=== PATIENT | female | born 2005 | race African-American/Black ===

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

== ENCOUNTER 2025-03-21 12:36 | Day surgery (SDC) | payer OTHER ==
[2025-03-21 13:05] VITALS: BMI 34.4
[2025-03-21] MEDS ORDERED: hydrALAZINE 20 MG/ML VIAL SLOW IVP PRN (13:33)
[2025-03-21 13:45] LABS: Glucose, Urine (Dipstick) Normal (Negative); Leukocyte 100 (Negative); Protein, Urine (Dipstick) 30 mg/dl (Neg-Trace); Specific Gravity, Urine 1.015 (1.005-1.030)
[2025-03-21 14:19] LABS: Bacteria/HPF 2+ HPF (None Seen); CAUTI Indications for Culture Pregnancy; RBC/HPF 0-3 HPF (0-3)
[2025-03-21 14:20] LABS: Urine Culture Reflex Yes Yes
== END 2025-03-21 14:35 | disposition home or self-care (01) ==
LOC: CSHLD/OP 12:36
PROVIDERS: ATTEND Family Medicine
DX: O47.03 False labor before 37 completed weeks of gestation, third trimester (principal); O99.213 Obesity complicating pregnancy, third trimester; Z3A.35 35 weeks gestation of pregnancy; Z67.40 Type O blood, Rh positive
CPT/HCPCS: 81001; 87086; 99283

== ENCOUNTER 2025-04-02 21:00 | Day surgery (SDC) | payer OTHER ==
[2025-04-02] MEDS: Acetaminophen 500 MG TAB PO SCH (22:38)
== END 2025-04-03 00:45 | disposition home or self-care (01) ==
LOC: CSHLD/OP 21:00
PROVIDERS: ATTEND Family Medicine
DX: O47.03 False labor before 37 completed weeks of gestation, third trimester (principal); Z3A.36 36 weeks gestation of pregnancy; Z67.40 Type O blood, Rh positive; Z79.899 Other long term (current) drug therapy
CPT/HCPCS: 96360; 99284

== ENCOUNTER 2025-04-10 15:23 | Day surgery (SDC) | payer OTHER ==
[2025-04-10 16:11] VITALS: BMI 35.4
[2025-04-10] MEDS ORDERED: hydrALAZINE 20 MG/ML VIAL SLOW IVP PRN (16:20)
== END 2025-04-10 17:21 | disposition home or self-care (01) ==
LOC: CSHLD/OP 15:23
PROVIDERS: ATTEND Family Medicine
DX: O47.1 False labor at or after 37 completed weeks of gestation (principal); Z67.40 Type O blood, Rh positive; Z3A.38 38 weeks gestation of pregnancy
CPT/HCPCS: 99283

== ENCOUNTER 2025-04-28 07:32 | Inpatient (IN) | payer OTHER ==
[2025-04-28] MEDS ORDERED: hydrALAZINE 20 MG/ML VIAL SLOW IVP PRN ×3 (07:53→22:05)
[2025-04-28] MEDS ORDERED: Diphenoxylate HCl/Atropine Tablet PO PRN (07:57)
[2025-04-28] MEDS ORDERED: Lidocaine 1% (PF) 30 ML VIAL SC PRN (07:57)
[2025-04-28] MEDS ORDERED: Acetaminophen 500 MG TAB PO PRN (07:57)
[2025-04-28] MEDS ORDERED: Ibuprofen 800 MG TAB PO PRN (07:57)
[2025-04-28] MEDS ORDERED: Oxytocin 30 units/NS 500 ML 500 ML IV SCH ×2 (08:00→22:05)
[2025-04-28 08:53] LABS: Hematocrit 34.7 % (34.9-44.5); Hemoglobin 11.2 g/dL (12.0-15.5); Mean Corpuscular Hemoglobin 27.0 pg (27.0-33.0); Mean Corpuscular Volume 83.6 fL (81.6-98.3); Platelet Count 189 10x3/uL (150-450); Red Blood Cell (RBC) Count 4.15 10x6/uL (3.90-5.03); White Blood Cell (WBC) Count 7.51 10x3/uL (3.5-10.5)
[2025-04-28 09:26] LABS: Syphilis Antibody Index 0.07 S/CO (<1.00 Non-Reactive)
[2025-04-28 09:27] LABS: Hep B Surf Ag - L&D Non-Reactive S/CO (NonReactive)
[2025-04-28] MEDS: fentaNYL/Ropivacaine Epidural 100 ML ONE (12:32)
[2025-04-28] MEDS: Ondansetron PF 4 MG/2 ML Vial IVP PRN ×2 (16:12→23:25)
[2025-04-28] MEDS ORDERED: Bicitra 30 ML UDCUP PO PRN (16:58)
[2025-04-28] MEDS ORDERED: Famotidine/PF 20 mg/2ml Vial SLOW IVP PRN (16:58)
[2025-04-28] MEDS ORDERED: Azithromycin 500 MG in Sodium Chloride 0.9% 250 ML 250 ML IVPB SCH (17:00)
[2025-04-28] MEDS ORDERED: HYDROmorphone 0.5 MG/0.5 ML SYRINGE SLOW IVP PRN (18:40)
[2025-04-28] MEDS ORDERED: Ondansetron PF 4 MG/2 ML Vial IVP PRN (18:40)
[2025-04-28] MEDS ORDERED: Communication Order-Pharmacy FS SCH (18:45)
[2025-04-28] MEDS ORDERED: Ketorolac Tromethamine 30 MG (1 mL) VIAL IVP SCH (18:45)
[2025-04-28] MEDS: Methylergonovine 0.2 MG/ML VIAL IM PRN (19:48)
[2025-04-28] MEDS: Oxytocin 30 units/NS 500 ML 500 ML IV SCH (19:59)
[2025-04-28] MEDS: Tranexamic Acid 1,000 MG/10 ML VIAL IVP PRN (20:09)
[2025-04-28 20:40] LABS: Platelet Count 190.0 10x3/uL (150-450)
[2025-04-28] MEDS: Meperidine HCl/PF 25 MG (1 mL) VIAL SLOW IVP PRN (20:56)
[2025-04-28] MEDS: Carboprost 250 MCG/ML AMP IM PRN (20:56)
[2025-04-28] MEDS: Diphenoxylate HCl/Atropine Tablet PO PRN (20:58)
[2025-04-28 20:59] LABS: D-Dimer Test 8.58 mcg/mL (0.19-0.50); Fibrinogen 361.0 mg/dL (220-504); INR-International Normal Ratio 0.9; PTT 29.7 sec (22.0-33.0); Prothrombin Time 10.4 sec (9.5-12.1)
[2025-04-28] MEDS ORDERED: Lanolin Ointment 7 GM TUBE TOP PRN (22:05)
[2025-04-28] MEDS ORDERED: Methylergonovine 0.2 MG/ML VIAL IM PRN (22:05)
[2025-04-28] MEDS: Azithromycin 500 MG VIAL ONE (22:07)
[2025-04-28] MEDS: Dexamethasone 10 MG/ML VIAL ONE (22:08)
[2025-04-28] MEDS: Lidocaine 2% MPF 10 ML AMP (For Epidural Use) ONE (22:08)
[2025-04-28] MEDS: CEFAZOLIN 2 GM VIAL ONE (22:08)
[2025-04-28] MEDS: Carboprost 250 MCG/ML AMP ONE (22:09)
[2025-04-28] MEDS: Methylergonovine 0.2 MG/ML VIAL ONE (22:09)
[2025-04-28] MEDS: Famotidine/PF 20 mg/2ml Vial ONE (22:09)
[2025-04-28] MEDS: PHENYLEPHRINE-NS 100 MCG/ML 10 ML SYRINGE ONE (22:09)
[2025-04-28] MEDS: Ferrous Sulfate 325 MG TAB PO SCH (22:22)
[2025-04-28] MEDS: Ketorolac Tromethamine 30 MG (1 mL) VIAL IVP PRN (23:25)
[2025-04-29 05:55] LABS: Hematocrit 25.6 % (34.9-44.5); Hemoglobin 8.5 g/dL (12.0-15.5); Mean Corpuscular Hemoglobin 27.5 pg (27.0-33.0); Mean Corpuscular Volume 82.8 fL (81.6-98.3); Platelet Count 172 10x3/uL (150-450); Red Blood Cell (RBC) Count 3.09 10x6/uL (3.90-5.03); White Blood Cell (WBC) Count 18.14 10x3/uL (3.5-10.5)
[2025-04-29] MEDS: diphenhydrAMINE 50 MG/ML VIAL IVP PRN (05:56)
[2025-04-29 07:22] LABS: Analyzer IN Cardio CS NICU; pH (Cord, venous) 7.268 (7.250-7.350)
[2025-04-29] MEDS ORDERED: HYDROcodone/Acetaminophen 5/325 mg Tablet PO PRN (07:45)
[2025-04-29] MEDS: Ferrous Sulfate 325 MG TAB PO SCH (07:47)
[2025-04-29] MEDS: HYDROcodone/Acetaminophen 5/325 mg Tablet PO PRN (07:47)
[2025-04-30] MEDS: Ibuprofen 800 MG TAB PO SCH (03:57)
[2025-04-30] MEDS: Simethicone Chewable 80 MG TAB PO PRN (09:00)
[2025-04-30 12:35] VITALS: TEMP 98.8
[2025-04-30 16:32] VITALS: BP 113/58
== END 2025-04-30 18:08 | disposition home or self-care (01) | DRG 787 ==
LOC: CSHLD/OP 07:32 → CSHLD 16:29 → CSHPP 21:45
PROVIDERS: ADMIT Family Medicine; ATTEND Family Medicine
PROC: 10D00Z1 Extraction of Products of Conception, Low, Open Approach (ICD-10-PCS; principal; 2025-04-28)
PROC: 10907ZC Drainage of Amniotic Fluid, Therapeutic from Products of Conception, Via Natural or Artificial Opening (ICD-10-PCS; 2025-04-28)
PROC: 10S07ZZ Reposition Products of Conception, Via Natural or Artificial Opening (ICD-10-PCS; 2025-04-28)
PROC: 0UCG7ZZ Extirpation of Matter from Vagina, Via Natural or Artificial Opening (ICD-10-PCS; 2025-04-28)
DX: O48.0 Post-term pregnancy (principal); O72.1 Other immediate postpartum hemorrhage; Z3A.40 40 weeks gestation of pregnancy; Z37.0 Single live birth; Z79.899 Other long term (current) drug therapy; O99.214 Obesity complicating childbirth; O64.0XX0 Obstructed labor due to incomplete rotation of fetal head, not applicable or unspecified
CPT/HCPCS: 36415; 51702; 82805; 85027; 85049; 85300; 85362; 85384; 85610; 85730; 86780; 86850; 86900; 86901; 87340; 99285; J1100; J1200; J1308; J1885; J2175; J2210; J2274; J2405; J2550; J2590; J3010; J3490